=== PATIENT | male | born 1995 | race Asian ===

== ENCOUNTER 2017-09-17 16:19 | Emergency (ER) | payer OTHER, BC ==
--- NOTE | 2017-09-17 18:07 | ED ---
Bite Injury/Animal - HPI Summary HPI Summary: Patient presents with concern about potential recent rabies exposure. He reports he was taking out his garbage Cesar night and he noticed that one of his previous garbage bags a been ripped open by some raccoons that were nearby. He reports the raccoons did not attack him or come near him as he was putting the garbage back into the torn bag - they kept their distance. He's concerned that he may have gotten saliva on his hands while touching these bags however denies that his hands were wet after touching the bags. He then went back into his apartment and later in the evening scratched a superficial pimple on his chest. He is not sure if he washed his hands in between touching the garbage bag (and potential racoon saliva) and then his chest and so was worried about rabies exposure today. Furthermore, he admits he had a preventative rabies series in [place] in 2011 however he is not confident that this was effective as it was recalled in recent years. He denies any symptoms of fevers chills fatigue and his initial pimple wound has healed without any concerns for tenderness, redness, swelling, drainage. He is quite anxious about this potential exposure. He is up-to-date with all other vaccines. - History of Current Complaint Chief Complaint: EDExposureBodyFluid Stated Complaint: POSS RABIES EXPOSURE Time Seen by Provider: 09/17/17 16:57 Hx Obtained From: Patient Pain Intensity: 0 - Allergies/Home Medications Allergies/Adverse Reactions: Allergies Allergy/AdvReac Type Severity Reaction Status Date / Time No Known Allergies Allergy Verified 09/17/17 16:21 PMH/Surg Hx/FS Hx/Imm Hx Previously Healthy: Yes Endocrine/Hematology History: Denies: Hx Anticoagulant Therapy, Autoimmune Disease - Immunization History Immunizations Up to Date: Yes Infectious Disease History: No Infectious Disease History: Denies: Hx of Known/Suspected MRSA, Traveled Outside the [place] in Last 30 Days - Social History Occupation: Student - [employer] Lives: Dormitory/Roommates Alcohol Use: Rare Hx Substance Use: No Substance Use Type: Reports: None Hx Tobacco Use: No Smoking Status (MU): Never Smoked Tobacco Review of Systems Constitutional: Negative Negative: Fever, Chills, Fatigue Musculoskeletal: Negative Skin: Negative Neurological: Negative Positive: Anxious All Other Systems Reviewed And Are Negative: Yes Physical Exam Triage Information Reviewed: Yes Vital Signs On Initial Exam: Initial Vitals Temp Pulse Resp BP Pulse Ox 99 F 84 18 142/91 100 09/17/17 16:21 09/17/17 16:21 09/17/17 16:21 09/17/17 16:21 09/17/17 16:21 Vital Signs Reviewed: Yes Appearance: Positive: Well-Appearing, No Pain Distress, Well-Nourished Skin: Positive: Warm, Skin Color Reflects Adequate Perfusion, Dry - 1mm healed superficial lesion over Rt chest wall - no erythema, no edema,no drainage Head/Face: Positive: Normal Head/Face Inspection Eyes: Positive: EOMI ENT: Positive: Hearing grossly normal Respiratory/Lung Sounds: Positive: Breath Sounds Present Cardiovascular: Positive: Normal Musculoskeletal: Positive: Normal, Strength/ROM Intact Neurological: Positive: Normal, Sensory/Motor Intact, Alert, Oriented to Person Place, Time, CN Intact II-III Psychiatric: Positive: Anxious Diagnostics - Vital Signs Vital Signs Temp Pulse Resp BP Pulse Ox 09/17/17 16:21 99 F 84 18 142/91 100 - Laboratory Lab Statement: Any lab studies that have been ordered have been reviewed, and results considered in the medical decision making process. Bite Injury Course/Dx - Course Course Of Treatment: This is a low risk exposure if any. Due to pt's high anxiety and concern, [facility] health dept was contacted. Spoke with Kimberly Alba, health department nurse, who reports this is not a rabies exposure and patient does not need further treatment at this time. On a separate note, if patient is concerned about the effectiveness of his preventative rabies vaccines in [place] from 2011, it is recommended he have a titer drawn. He may do this through [employer] as he is a student there. If his antibody levels are within range, no further vaccines are necessary for prevention. If his levels are not within range and he wants to prophylactically prevent rabies for potential future exposures, he may opt to take preventative rabies series. Again, advised to request consult through [employer] who may be able to provide this or give guidance based on his insurance , etc as he voiced concern about cost today as well. Although pt continues to report anxiety about this situation, he voices understanding. He may additinally benefit from counseling through [employer] if this fear interferes with his day to day life. He is aware of [employer] counseling services as well. - Diagnoses Provider Diagnosis: Encounter for medical screening examination Discharge - Sign-Out/Discharge Documenting (check all that apply): Patient Departure - Discharge Plan Condition: Stable Disposition: HOME Referrals: [facility] - [facility] LOWE [Medical Doctor] - Additional Instructions: The interactions that took place on Monday night which you at no risk for rabies exposure. He do not need any treatment for rabies prevention at this time. If he would like to have your rabies titer checked, he may have this done through [employer]. Call or health department tomorrow to inquire about testing. - Billing Disposition and Condition Condition: STABLE Disposition: Home
[2017-09-17 18:28] VITALS: BP 137/84
== END 2017-09-17 18:28 | disposition home or self-care (01) ==
LOC: ED 16:19
DX: Z03.89 Encounter for observation for other suspected diseases and conditions ruled out (principal); F41.9 Anxiety disorder, unspecified
CPT/HCPCS: 99282

== ENCOUNTER 2019-06-04 12:35 | Emergency (ER) | payer OTHER ==
[2019-06-04 12:47] VITALS: BP 130/81
[2019-06-04] MEDS ORDERED: Rabies VIRUS VACCINE (RabAvert) 2.5 UNITS VIAL IM ONE (12:50)
== END 2019-06-04 13:20 | disposition home or self-care (01) ==
LOC: UCEAST 12:35